=== PATIENT | male | born 1980 | race Caucasian/White ===

== ENCOUNTER 2020-12-15 17:35 | Emergency (ER) | payer OTHER ==
[2020-12-15 17:54] VITALS: BP 116/88; PULSE 74; TEMP 99; BMI 26.1
== END 2020-12-15 19:10 | disposition home or self-care (01) ==
LOC: FER 17:35
DX: S89.92XA Unspecified injury of left lower leg, initial encounter (principal); S80.12XA Contusion of left lower leg, initial encounter; R22.42 Localized swelling, mass and lump, left lower limb; X50.0XXA Overexertion from strenuous movement or load, initial encounter; Y93.64 Activity, baseball
CPT/HCPCS: 93971-TC; 99284-25